=== PATIENT | female | born 1990 | race Caucasian/White ===

== ENCOUNTER 2022-03-21 06:51 | Emergency (ER) | payer MEDICAID ==
[~2022-03-21] VITALS: Ht 157.5 cm; Wt 96.5 kg
[2022-03-21 07:03] VITALS: BP 116/72
[2022-03-21 08:17] LABS: BASOPHILS % 0.7 % (0.0-2.0); EOSINOPHILS % 0.5 % (0.0-5.0); HEMATOCRIT. 39.8 % (36.0-48.0); HEMOGLOBIN. 13.5 g/dL (12.0-16.0); LYMPHOCYTES % 21.3 % (20.0-50.0); MEAN CORPUSCULAR HEMOGLOBIN 29.2 pg (28.0-32.0); MEAN CORPUSCULAR VOLUME 86.1 fL (81.0-99.0); MEAN PLATELET VOLUME 8.9 fl (7.4-10.4); MONOCYTES % 7.5 % (2.0-8.0); PLATELET 263 x1000/uL (130-400); RED BLOOD CELL COUNT 4.62 mill/uL (4.2-5.4); RED CELL DISTRIBUTION WIDTH 13.7 % (11.6-14.6)
[2022-03-21 08:21] LABS: CHLORIDE 104 mEq/L (98-107)
[2022-03-21 08:37] LABS: CLARITY URINE CLEAR (CLEAR); COLOR URINE YELLOW (YELLOW); KETONES URINE NEGATIVE (NEGATIVE); LEUKOCYTE ESTERASE URINE TRACE (NEGATIVE); NITRITE URINE NEGATIVE (NEGATIVE); OCCULT BLOOD URINE 3+ (NEGATIVE); PH URINE 6.5 (4.5-8.0); PROTEIN URINE TRACE (NEGATIVE); SPECIFIC GRAVITY URINE 1.008 (1.005-1.030); UROBILINOGEN URINE 0.2 E.U./dL (0.2-1.0)
[2022-03-21 08:44] LABS: B-HCG QUANTITATIVE 27034 mIU/mL (<3)
[2022-03-21] MEDS ORDERED: CEPH500C2 MT (09:14)
== END 2022-03-21 09:27 | disposition home or self-care (01) ==
LOC: ER 06:51
DX: O20.9 Hemorrhage in early pregnancy, unspecified (principal); Z3A.01 Less than 8 weeks gestation of pregnancy
CPT/HCPCS: 36415; 76801; 80053; 81003; 81025; 84702; 85025; 86850; 86900; 99284

== ENCOUNTER 2022-03-22 17:57 | Emergency (ER) | payer MEDICAID ==
[~2022-03-22] VITALS: Ht 167.6 cm; Wt 75.0 kg
[~2022-03-22 17:57] MED LIST: CEPH500C2 MT
[2022-03-23 03:56] LABS: BASOPHILS % 0.7 % (0.0-2.0); EOSINOPHILS % 0.8 % (0.0-5.0); HEMATOCRIT. 40.4 % (36.0-48.0); HEMOGLOBIN. 13.5 g/dL (12.0-16.0); LYMPHOCYTES % 24.9 % (20.0-50.0); MEAN CORPUSCULAR HEMOGLOBIN 28.7 pg (28.0-32.0); MEAN CORPUSCULAR VOLUME 86.1 fL (81.0-99.0); MEAN PLATELET VOLUME 8.7 fl (7.4-10.4); MONOCYTES % 7.9 % (2.0-8.0); NEUTROPHILS % 65.7 % (40.0-76.0); PLATELET 286 x1000/uL (130-400); RED BLOOD CELL COUNT 4.69 mill/uL (4.2-5.4)
[2022-03-23 04:06] LABS: CHLORIDE 105 mEq/L (98-107)
[2022-03-23 04:10] LABS: HCG SCREEN POSITIVE
[2022-03-23 04:29] LABS: B-HCG QUANTITATIVE 39966 mIU/mL (<3)
[2022-03-23 07:06] VITALS: BP 122/86
== END 2022-03-23 07:10 | disposition home or self-care (01) ==
LOC: ER 17:57
DX: O20.9 Hemorrhage in early pregnancy, unspecified (principal); O26.891 Other specified pregnancy related conditions, first trimester; R42 Dizziness and giddiness; O24.311 Unspecified pre-existing diabetes mellitus in pregnancy, first trimester; Z3A.01 Less than 8 weeks gestation of pregnancy
CPT/HCPCS: 36415; 76801; 80053; 84702; 84703; 85025; 86850; 86900; 99284

== ENCOUNTER 2022-08-10 09:48 | Emergency (ER) | payer MEDICAID ==
[~2022-08-10] VITALS: Ht 165.1 cm; Wt 100.0 kg
[2022-08-10 10:06] VITALS: BP 121/75
== END 2022-08-10 13:06 | disposition home or self-care (01) ==
LOC: ER 09:48
DX: O98.512 Other viral diseases complicating pregnancy, second trimester (principal); U07.1 COVID-19; O24.912 Unspecified diabetes mellitus in pregnancy, second trimester; Z3A.26 26 weeks gestation of pregnancy
CPT/HCPCS: 99281